=== PATIENT | female | born 1990 | race Caucasian/White ===

== ENCOUNTER 2017-09-20 20:27 | Emergency (ER) | END 2017-09-21 01:05 | disposition home or self-care (01) | DX: K92.2 Gastrointestinal hemorrhage, unspecified (principal); K21.9 Gastro-esophageal reflux disease without esophagitis; Z79.899 Other long term (current) drug therapy | CPT/HCPCS: 74177; 80053; 83735; 84703; 85025; 86850; 86900; 86901; 96374; 99284; C9113; Q9967 ==